=== PATIENT | female | born 1975 | race Caucasian/White ===

== ENCOUNTER 2017-10-25 23:44 | Emergency (ER) | END 2017-10-26 04:31 | disposition left against medical advice (07) ==

== ENCOUNTER 2018-09-05 23:35 | Emergency (ER) | payer MEDICAID ==
[~2018-09-05] VITALS: Ht 162.6 cm; Wt 73.9 kg
[~2018-09-05 23:35] MED LIST: NAPR-985 PO
[2018-09-05 23:39] VITALS: BP 142/63; PULSE 70; RESP 16; Ht 162.6 cm; Wt 73.9 kg
--- NOTE | 2018-09-06 01:56 | ERD ---
ER Documentation Chief Complaint Chief Complaint pt hit self in head while hammering HPI 42-year-old female presented to the emergency department complaining of left parietal scalp pain after accidentally hitting herself in the head with a metal hammer which occurred just prior to arrival. She states she is hammering a nail into the wall when she accidentally hit her self in the head. She reports pain which is constant and 6/10 in severity. She denies any loss of consciousness or vomiting or confusion or other symptoms. She did not take medication for relief of symptoms prior to arrival. ROS All systems reviewed and are negative except as per history of present illness. Medications Home Meds Active Scripts Ibuprofen* (Motrin*) 600 Mg Tab, 600 MG PO Q6, #30 TAB Prov:ROXANA LILLY PA-C 09/06/18 Naproxen* (Naprosyn*) 500 Mg Tablet, 500 MG PO BID PRN for PAIN AND/OR INFLAMMATION, #30 TAB Prov:ROXANA LILLY PA-C 10/26/17 Allergies Allergies: Coded Allergies: No Known Allergy (Unverified , 08/24/13) PMhx/Soc Medical and Surgical Hx: pt denies Medical Hx Anesthesia Reaction: No Hx Neurological Disorder: No Hx Respiratory Disorders: No Hx Cardiac Disorders: No Hx Psychiatric Problems: No Hx Miscellaneous Medical Probl: No Hx Alcohol Use: No Hx Substance Use: No Hx Tobacco Use: No Smoking Status: Never smoker FmHx Family History: No diabetes Physical Exam Vitals Vital Signs Date Temp Pulse Resp B/P (MAP) Pulse Ox O2 O2 Flow FiO2 Time Delivery Rate 09/05/18 97.1 70 16 142/63 100 23:39 (89) Physical Exam Const: No acute distress Head: There is an approximate 2 cm laceration noted to the left parietal area of the scalp. Eyes: Normal Conjunctiva ENT: Normal External Ears, Nose and Mouth. Neck: Full range of motion. No meningismus. Resp: Clear to auscultation bilaterally Cardio: Regular rate and rhythm, no murmurs Skin: No petechiae or rashes Ext: No cyanosis, or edema Neur: Awake and alert. No neurological deficits. Psych: Normal Mood and Affect Results 24 hrs [place] [id number] Radiology Main Line: [phone] DIAGNOSTIC IMAGING REPORT Patient: RIVERA HESTER : 1975 Age: 42 Sex: F MR #: [id number] DOS: 09/06/18 0000 Ordering MD: ROXANA LILLY PA-C Location: [facility] Room/Bed: PROCEDURE: CT head without intravenous contrast CLINICAL INDICATION: Head injury. COMPARISON: None. TECHNIQUE: Axial CT images from skull base to vertex with coronal and sagittal reformats. DOSE: The estimated administered radiation dose was CTDI vol = 39.54 mGy. DLP = 554.95 mGy-cm. One or more of the following dose reduction techniques were used: automated exposure control, adjustment of the mA and/or kV according to patient size, or use of iterative reconstruction. DICOM images are available. FINDINGS: Parenchyma: No acute hemorrhage, large territorial infarction, or mass. The [place]-white matter junctions are intact. No space occupying intra-axial masses or extra-axial fluid collections are present. Ventricles: No ventriculomegaly or ventricular effacement. Extra-axial spaces: No herniation or midline shift. Paranasal sinuses: Clear. Mastoids and middle ears: Clear. Visualized orbits: Normal. Vessels: There is no calcified atherosclerotic arterial plaque identified in the internal carotid arteries. Bones: Normal. Extracranial soft tissues: There is mild focal left frontal scalp swelling. Additional comment: None. IMPRESSION: 1. No acute intracranial abnormality. 2. Mild focal left frontal scalp swelling. RPTAT: HRSR Physician Chase Date Time Electronically viewed and signed by Physician Chase on 09/06/2018 02:05 RR/ CC: ROXANA LILLY PA-C [id number] Procedures/MDM 42-year-old female presenting to the emergency department complaining of head injury with a hammer which occurred just prior to arrival. CT head without contrast showed no intracranial bleeding. The full report interpreted by the radiologist may be viewed above. The patient was given full risks, benefits, alternatives of laceration repair with orlando and she gave verbal agreement. Laceration Repair by me: Anesthesia: None required Location: Left parietal region of the scalp Tendon/Joint/Nerves: No injury Foreign body: None detected after copious irrigation and exploration Technique: 2 [place] Complexity: No subcutaneous sutures/mucosal repair/edge excision Post Closure Length: 2 cm Patient's bleeding was easily controlled in the department and there is no indication of anemia. No evidence of compartment syndrome, neurologic injury, vascular injury, open joint, tendon laceration, or foreign body. Patient is appropriate for outpatient follow up. 48 hour wound check. Scar minimization instructions given. No evidence of life-threatening pathology at time of discharge. Pt/family in agreement with discharge plan/diagnosis. Pt/family advised to return immediately with any new or worsening symptoms. Follow-up with primary care physician within the next 1-2 days. Departure Diagnosis: Primary Impression: Scalp laceration Encounter type: initial encounter Qualified Codes: S01.01XA - Laceration without foreign body of scalp, initial encounter Condition: Fair Additional Instructions: Muchas joey por [facility] para santos servicio. Esperamos que en santos visita a la luke de emergencia santos problema medico haya sido solucionado y que se sienta mucho mejor. Para estar seguros que santos mejoria sigue en proceso, le pedimos el favor de hacer sd saman de seguimiento medico con santos doctor primario en los proximos 2-4 brandt. Lleve con usted estos documentos y las medicinas recetadas. Si glory sintomas empeoran, NO SE ESPERE, por favor regrese a luke de emergencia INMEDIATAMENTE. En kenzie que usted no tenga un mdico de atencin primaria: Llame al mdico o clnica comunitaria de referencia que aparece abajo kaleb las horas de consultorio para hacer sd saman para que le vean. CLINICAS: [facility] 199 [phone] [address] [facility] 105 [phone] [address] [facility] [phone] [address] [facility] [phone] [address] [facility] 467 [phone] [address] [facility]. [phone] ROXANA FUENTES PA-C September 06, 2018 01:56
[2018-09-06] MEDS ORDERED: IBUP-1542 PO (02:06)
== END 2018-09-06 02:37 | disposition home or self-care (01) ==
LOC: FTE 23:35
DX: S01.01XA Laceration without foreign body of scalp, initial encounter (principal); W22.8XXA Striking against or struck by other objects, initial encounter; Y92.9 Unspecified place or not applicable
CPT/HCPCS: 12001; 70450; Z7502

== ENCOUNTER 2018-09-08 09:19 | Emergency (ER) | payer MEDICAID ==
[~2018-09-08] VITALS: Wt 79.0 kg
[~2018-09-08 09:19] MED LIST changes: +IBUP-1542 PO
[2018-09-08 09:26] VITALS: BP 124/69; PULSE 63; RESP 18
--- NOTE | 2018-09-08 13:01 | ERD ---
ER Documentation Chief Complaint Chief Complaint scalp wound check HPI Patient is a 42-year-old female who presents for a wound check. The patient had orlando placed to the scalp just a few days ago. The patient has no fevers and no pus from the wound. She was told to return in 2 days for a wound check. ROS All systems reviewed and are negative except as per history of present illness. Medications Home Meds Active Scripts Ibuprofen* (Motrin*) 600 Mg Tab, 600 MG PO Q6, #30 TAB Prov:ROXANA LILLY PA-C 09/06/18 Naproxen* (Naprosyn*) 500 Mg Tablet, 500 MG PO BID PRN for PAIN AND/OR INFLAMMATION, #30 TAB Prov:ROXANA LILLY PA-C 10/26/17 Allergies Allergies: Coded Allergies: No Known Allergy (Unverified , 08/24/13) PMhx/Soc Medical and Surgical Hx: pt denies Medical Hx Anesthesia Reaction: No Hx Neurological Disorder: No Hx Respiratory Disorders: No Hx Cardiac Disorders: No Hx Psychiatric Problems: No Hx Miscellaneous Medical Probl: No Hx Alcohol Use: No Hx Substance Use: No Hx Tobacco Use: No Smoking Status: Never smoker FmHx Family History: No diabetes Physical Exam Vitals Vital Signs Date Temp Pulse Resp B/P (MAP) Pulse Ox O2 O2 Flow FiO2 Time Delivery Rate 09/08/18 98.1 63 18 124/69 99 09:26 (87) Physical Exam Const: No acute distress Head: Incision to the scalp is clean, dry, and intact without sign of infection Neur: Awake and alert Psych: Normal Mood and Affect Procedures/MDM Wound shows no evidence of infection, foreign body, neurologic injury, vascular injury, open joint or tendon laceration. Patient appropriate for outpatient follow up. Departure Diagnosis: Primary Impression: Encounter for wound re-check Condition: Fair Patient Instructions: Wound Check, Lac F/U (No Infection) Referrals: Your doctor Additional Instructions: Llame al doctor tarah grayson (Referral Sources) MAANA y bernice sd HIEN PARA DENTRO DE SD SEMANA. Dgale a la secretaria que nosotros le instruimos hacer esta hien.Avise o llame si santos condicin se empeora antes de la hien. RAFAEL JOHNSON MD September 08, 2018 13:01
== END 2018-09-08 10:25 | disposition home or self-care (01) ==
LOC: FTE 09:19
DX: Z48.01 Encounter for change or removal of surgical wound dressing (principal)
CPT/HCPCS: 99281

== ENCOUNTER 2018-09-12 13:42 | Emergency (ER) | payer MEDICAID ==
[~2018-09-12] VITALS: Wt 78.0 kg
[2018-09-12 13:45] VITALS: BP 130/78; PULSE 78; RESP 18
--- NOTE | 2018-09-12 14:28 | ERD ---
ER Documentation Chief Complaint Chief Complaint SCALP ALEXEI REMOVAL HPI 42-year-old female presents for staple removal. Patient was initially seen here on September 05, 2018 for laceration to her left parietal scalp sustained after accidentally hitting herself with a metal hammer. Patient had 2 alexei placed. She presents today for staple removal. She denies any wound discharge, bleeding. Denies any fevers or chills. Denies any new head injury. She otherwise feels well has no other complaints. ROS All systems reviewed and are negative except as per history of present illness. Medications Home Meds Active Scripts Ibuprofen* (Motrin*) 600 Mg Tab, 600 MG PO Q6, #30 TAB Prov:ROXANA LILLY PA-C 09/06/18 Naproxen* (Naprosyn*) 500 Mg Tablet, 500 MG PO BID PRN for PAIN AND/OR INFLAMMATION, #30 TAB Prov:ROXANA LILLY PA-C 10/26/17 Allergies Allergies: Coded Allergies: No Known Allergy (Unverified , 08/24/13) PMhx/Soc Medical and Surgical Hx: pt denies Medical Hx Anesthesia Reaction: No Hx Neurological Disorder: No Hx Respiratory Disorders: No Hx Cardiac Disorders: No Hx Psychiatric Problems: No Hx Miscellaneous Medical Probl: No Hx Alcohol Use: No Hx Substance Use: No Hx Tobacco Use: No Physical Exam Vitals Vital Signs Date Temp Pulse Resp B/P (MAP) Pulse Ox O2 O2 Flow FiO2 Time Delivery Rate 09/12/18 97.5 78 18 130/78 99 13:45 (95) Physical Exam Const: No acute distress Head: + Well-healing 2 cm wound to left parietal scalp, [address] No active bleeding. No surrounding erythema or discharge. Eyes: Normal Conjunctiva. EOMI. PERRL. ENT: Normal External Ears, Nose and Mouth. Neck: Full range of motion. No meningismus. Skin: No petechiae or rashes Ext: No cyanosis, or edema. Full ROM Neur: Awake and alert Psych: Normal Mood and Affect Procedures/MDM PROCEDURES: Staple Removal by me. Alexei removed with staple remover without incident. MEDICAL DECISION MAKIN-year-old female presents for staple removal. [place] were removed, patient tolerated well. Wound is healing well. No signs of foreign body, cellulitis, abscess, sepsis or other deep space infection. Recommend gentle cleaning with mild soap and water. Pt is stable for outpatient follow up and management. Strict return precautions given. PRESCRIPTIONS: None SPECIALIST FOLLOW UP RECOMMENDED: None Patient has been advised to follow up with primary care in 1-2 days. Departure Diagnosis: Primary Impression: Removal of staple Condition: Stable Patient Instructions: Staple Removal, No Complication Referrals: [facility] YOU HAVE RECEIVED A MEDICAL SCREENING EXAM AND THE RESULTS INDICATE THAT YOU DO NOT HAVE A CONDITION THAT REQUIRES URGENT TREATMENT IN THE EMERGENCY DEPARTMENT. FURTHER EVALUATION AND TREATMENT OF YOUR CONDITION CAN WAIT UNTIL YOU ARE SEEN IN YOUR DOCTORS OFFICE WITHIN THE NEXT 1-2 DAYS. IT IS YOUR RESPONSIBILITY TO MAKE AN APPOINTMENT FOR FOLOW-UP CARE. IF YOU HAVE A PRIMARY DOCTOR --you should call your primary doctor and schedule an appointment IF YOU DO NOT HAVE A PRIMARY DOCTOR YOU CAN CALL OUR PHYSICIAN REFERRAL HOTLINE AT IF YOU CAN NOT AFFORD TO SEE A PHYSICIAN YOU CAN CHOSE FROM THE FOLLOWING [facility] [address] [facility] [address] [email or web address] [address] [facility] [address] [facility] [address] [facility] [address] [facility]. [facility]. [address] [facility]. [facility] YOU HAVE RECEIVED A MEDICAL SCREENING EXAM AND THE RESULTS INDICATE THAT YOU DO NOT HAVE A CONDITION THAT REQUIRES URGENT TREATMENT IN THE EMERGENCY DEPARTMENT. FURTHER EVALUATION AND TREATMENT OF YOUR CONDITION CAN WAIT UNTIL YOU ARE SEEN IN YOUR DOCTORS OFFICE WITHIN THE NEXT 1-2 DAYS. IT IS YOUR RESPONSIBILITY TO MAKE AN APPOINTMENT FOR FOLOW-UP CARE. IF YOU HAVE A PRIMARY DOCTOR --you should call your primary doctor and schedule and appointment IF YOU DO NOT HAVE A PRIMARY DOCTOR YOU CAN CALL OUR PHYSICIAN REFERRAL HOTLINE AT . IF YOU CAN NOT AFFORD TO SEE A PHYSICIAN YOU CAN CHOSE FROM THE FOLLOWING [facility]: [facility] [address] [place] [address] [facility] [address] [place] [address] [facility] [address] [place] [address] [facility] Additional Instructions: Paciente aconseja volver a Departamento de urgencias inmediatamente para sntomas nuevos o que empeoran . Paciente aconseja posteriores con el PCP en 1-2 winter. Si el paciente no tiene ninguna de atencin primaria pueden seguir con [facility] [address] [place] [address] [address] STEPHANIE QUEEN PA-C Sep 12, 2018 14:27
== END 2018-09-12 14:42 | disposition home or self-care (01) ==
LOC: FTE 13:42
DX: Z48.02 Encounter for removal of sutures (principal)
CPT/HCPCS: 99281